=== PATIENT | female | born 1985 | race African-American/Black ===

== ENCOUNTER 2021-09-24 21:36 | Emergency (ER) | payer SELFPAY ==
[~2021-09-24] VITALS: Ht 175.3 cm; Wt 73.0 kg
[2021-09-24] MEDS ORDERED: SODIUM CHLORIDE 0.9% 1000ML BAG (SEPSIS BOLUS) IV ONE (22:30)
[2021-09-24] MEDS ORDERED: DIPHENHYDRAMINE 50MG/ML VIAL IM ONE (23:00)
[2021-09-24] MEDS ORDERED: LORAZEPAM 2MG/ML CPJ IM ONE (23:00)
[2021-09-24] MEDS ORDERED: HALOPERIDOL LACTATE 5MG/ML VIAL IM ONE (23:00)
[2021-09-25 00:28] LABS: BASOPHILS % 0.5 % (0.0-2.0); EOSINOPHILS % 2.2 % (0.0-5.0); HEMATOCRIT. 37.8 % (36.0-48.0); HEMOGLOBIN. 12.2 g/dL (12.0-16.0); LYMPHOCYTES % 25.8 % (20.0-50.0); MEAN CORPUSCULAR HEMOGLOBIN 27.2 pg (28.0-32.0); MEAN CORPUSCULAR VOLUME 84.1 fL (81.0-99.0); MEAN PLATELET VOLUME 7.8 fl (7.4-10.4); MONOCYTES % 8.6 % (2.0-8.0); NEUTROPHILS % 62.9 % (40.0-76.0); PLATELET 322 x1000/uL (130-400); RED BLOOD CELL COUNT 4.49 mill/uL (4.2-5.4); RED CELL DISTRIBUTION WIDTH 14.5 % (11.6-14.6)
[2021-09-25 00:45] LABS: CLARITY URINE CLEAR (CLEAR); COLOR URINE YELLOW (YELLOW); KETONES URINE NEGATIVE (NEGATIVE); LEUKOCYTE ESTERASE URINE NEGATIVE (NEGATIVE); NITRITE URINE NEGATIVE (NEGATIVE); OCCULT BLOOD URINE NEGATIVE (NEGATIVE); PROTEIN URINE NEGATIVE (NEGATIVE); SPECIFIC GRAVITY URINE 1.008 (1.005-1.030)
[2021-09-25 00:50] LABS: HCG SCREEN NEGATIVE
[2021-09-25 00:58] LABS: *BARBITURATES SCREEN URINE NEGATIVE (NEGATIVE); *BENZODIAZEPINES SCREEN URINE NEGATIVE (NEGATIVE); *COCAINE SCREEN URINE NEGATIVE (NEGATIVE); METHADONE URINE SCREEN NEGATIVE (NEGATIVE)
[2021-09-25] MEDS ORDERED: CEFTRIAXONE 1 G PREMIX 50 ML IV ONE (01:00)
[2021-09-25 01:03] LABS: CHLORIDE 108 mEq/L (98-107)
[2021-09-25 01:04] LABS: *AMPHETAMINES SCREEN URINE PRESUMTIVE POSITIVE (NEGATIVE); CANNABINOID URINE SCREEN PRESUMTIVE POSITIVE (NEGATIVE); OPIATES URINE SCREEN PRESUMTIVE POSITIVE (NEGATIVE); PHENCYCLIDINE URINE SCREEN PRESUMTIVE POSITIVE (NEGATIVE)
[2021-09-25 01:13] LABS: CREATINE KINASE 217 IU/L (26-192); ETHANOL BLOOD < 10 mg/dL
[2021-09-25] MEDS ORDERED: METO-293 MT ×2 (05:27)
[2021-09-25] MEDS ORDERED: LORAZEPAM 2MG/ML CPJ IM STA (08:30)
[2021-09-25] MEDS ORDERED: OLANZAPINE 10 MG/VIAL IM ONE (08:30)
[2021-09-25] MEDS: OLANZAPINE 5MG TABLET ODT PO SCH ×2 (09:06→19:30)
[2021-09-26 06:26] VITALS: BP 106/59
== END 2021-09-26 10:50 | disposition home or self-care (01) ==
LOC: ER 21:36 → EDBD 21:36 → ER 09-26 10:50
DX: F29 Unspecified psychosis not due to a substance or known physiological condition (principal); F19.10 Other psychoactive substance abuse, uncomplicated
CPT/HCPCS: 36415; 70450; 71045; 80053; 80305; 80307; 80320; 80329; 81003; 82550; 83605; 84703; 85025; 87086; 96360; 96372; 99285; J1200; J1630; J2060; J3490; J7030; 96361; G0480